=== PATIENT | female | born 1995 | race Caucasian/White ===

== ENCOUNTER 2019-03-25 21:41 | Outpatient (CLI) | payer MEDICAID ==
[~2019-03-25] VITALS: Ht 160 cm; Wt 90.0 kg
[2019-03-25 22:02] VITALS: BP 118/75; PULSE 106; RESP 20; Ht 160 cm; Wt 90.0 kg
[2019-03-25] MEDS ORDERED: PREN-93 PO (23:40)
--- NOTE | 2019-03-26 00:24 | PN ---
Triage Information Date/Time Reason for visit: Abd/pelvic pain Weeks of Gestation 29 weeks /Para Diabetes: none Hypertention: none Objective Vital Signs Date Temp Pulse Resp B/P (MAP) Pulse Ox O2 O2 Flow FiO2 Time Delivery Rate 03/25/19 98.3 106 20 118/75 98 Room Air 22:02 (89) Heart Rate: 130's Heart Rate Comments Reactive Contractions: None Results/Medications Result Diagram: 03/25/19 2244 Results 24 hrs Laboratory Tests Test 03/25/19 21:45 03/25/19 22:44 Urine Color COLORLESS Urine Clarity CLEAR Urine pH 7.0 Urine Specific [place] 1.008 Urine Ketones NEGATIVE Urine Nitrite NEGATIVE Urine Bilirubin NEGATIVE Urine Urobilinogen NEGATIVE Urine Leukocyte Esterase NEGATIVE Urine Hemoglobin NEGATIVE Urine Glucose 3+ H Urine Total Protein NEGATIVE White Blood Count 14.4 H Red Blood Count 4.04 L Hemoglobin 11.4 L Hematocrit 35.9 L Mean Corpuscular Volume 88.9 Mean Corpuscular Hemoglobin 28.2 L Mean Corpuscular Hemoglobin Concent 31.8 L Red Cell Distribution Width 14.0 Platelet Count 416 H Mean Platelet Volume 9.6 Immature Granulocytes % 2.600 H Neutrophils % 67.3 Lymphocytes % 18.8 Monocytes % 7.5 Eosinophils % 3.3 Basophils % 0.5 Nucleated Red Blood Cells % 0.0 Immature Granulocytes # 0.380 H Neutrophils # 9.7 H Lymphocytes # 2.7 Monocytes # 1.1 H Eosinophils # 0.5 Basophils # 0.1 Nucleated Red Blood Cells # 0.0 Disposition: Discharge Assessment/Plan No sign of labor Follow up in clinic for 1 hr GCT MADI ORR MD March 26, 2019 00:24
--- NOTE | 2019-03-26 07:32 | TRIAGE ---
OB Triage Datetime Report Generated by CPN: 03/26/2019 07:32 Datetime: 03/26/2019 00:15 Stage of : OB Triage Labor Evaluation Frequency: None noted or palpated Monitor Mode: External Resting Tone [place]: Relaxed Heart Rate FHR Baseline Rate: 150 Monitor Mode: External US Variability: Moderate 6-25 bpm Accelerations: 10X10 Datetime: 03/25/2019 23:00 Stage of : OB Triage Labor Evaluation Frequency: x1 Monitor Mode: External Duration (sec)2399: 40 Quality: Mild Pattern: Normal: <= 5 Contractions in 10 Minutes Resting Tone [place]: Relaxed Heart Rate FHR Baseline Rate: 150 Monitor Mode: External US Variability: Moderate 6-25 bpm Accelerations: 15X15 Decelerations: Variable Category: Category II Datetime: 03/25/2019 22:53 EGA: 29.0 Datetime: 03/25/2019 22:14 Stage of : OB Triage Datetime: 03/25/2019 22:06 Monitor Mode: External Resting Tone [place]: Relaxed Contraction Comments: [place] applied Datetime: 03/25/2019 22:02 Stage of : OB Triage Assessment Type: Triage Maternal Assessment Level of Consciousness: Fully Conscious DTR's/Clonus: DTRs 2+; No Clonus Headache: Denies Blurred Vision: No Respiratory Effort: Unlabored; Regular Rhythm; Equal Expansion Breath Sounds, Left: Clear and Equal Breath Sounds, Right: Clear and Equal Nausea/Vomiting: Denies RUQ Epigastric Pain: Denies Lower Extremities Edema: None Degree: None Upper Extremities Edema: None Degree: None Facial Edema: None Temperature Route: Oral Fall Risk Assessment History of Falling: (0) No Secondary Diagnosis: (0) No Ambulatory Aid: (0) Bedrest/Nurse Assist IV Therapy: (0) No Gait: (0) Normal/Bedrest/Immobile Mental Status: (0) Oriented to Own Ability Fall Score: 0 Fall Risk Score Definition: No Risk: No action required Pain Assessment Pain Scale: 5 Pain Presence: Constant Pain Type: Pressure; Ache Pain Location: Abdomen; Back Pain Relief Measures: Comfort Measures Pain Assessment Comments: Pt reports lower abdominal pressure _ constant back pain Datetime: 03/25/2019 22:00 Monitor Mode: External US Comments: EFM applied Datetime: 03/25/2019 21:53 Time of Arrival: 03/25/2019 21:33 Arrived By: Wheelchair Arrived From: Home Chief Complaint: Pt reports lower abdominal pressure _ constant back pain Movement: Present Contractions: Denies/Absent Rupture of Membranes: Denies Vaginal Bleeding: None Vaginal Discharge: Denies Abdominal Trauma: Not Applicable Patient Complaints: Back Pain Additional Patient Complaints: Reports has low lying placenta since 21wks - denies ever having blee ding Hx elevated BPs - no meds Time Provider Notified: 03/25/2019 21:45 Provider Notified:
== END 2019-03-26 00:38 | disposition home or self-care (01) ==
LOC: OBT 21:41 → L-D 21:46 → OBT 03-26 00:38
PROVIDERS: ATTEND Obstetrics & Gynecology
DX: O26.893 Other specified pregnancy related conditions, third trimester (principal); R10.2 Pelvic and perineal pain; Z3A.29 29 weeks gestation of pregnancy
CPT/HCPCS: 76817; 81003; 85025

== ENCOUNTER 2019-05-03 17:16 | Outpatient (CLI) | payer MEDICAID ==
[~2019-05-03] VITALS: Ht 157.5 cm; Wt 93.5 kg
[~2019-05-03 17:16] MED LIST: PREN-93 PO
[2019-05-03 17:27] VITALS: Ht 157.5 cm; Wt 93.5 kg
[2019-05-03 17:28] VITALS: BP 120/69; PULSE 96; RESP 18
--- NOTE | 2019-05-03 20:23 | PN ---
Triage Information Date/Time Reason for visit: Elevated blood pressures rule out preeclampsia Weeks of Gestation 23-year-old 2 para 0 at 34 weeks and 4 days of gestation with estimated date of delivery June 10, 2019 Patient reports of having elevated blood pressure since the beginning of and she was sent from her clinic to rule out preeclampsia Patient denies headache or blurry vision, denies chest pain or shortness of breath, denies right upper quadrant pain Patient reports positive movement, denies vaginal bleeding and leaking fluid, denies uterine contractions /Para 2 para 0 Diabetes: none Hypertention: induced Objective Vital Signs Date Temp Pulse Resp B/P (MAP) Pulse Ox O2 O2 Flow FiO2 Time Delivery Rate 05/03/19 98.7 96 18 120/69 Room Air 17:28 (86) Heart Rate: 140's Heart Rate Comments heart rate tracing category 1 Contractions: None Results/Medications Result Diagram: 05/03/19 1751 05/03/19 1751 Results 24 hrs Laboratory Tests Test 05/03/19 17:51 05/03/19 18:00 White Blood Count 10.1 # Red Blood Count 4.22 Hemoglobin 11.9 L Hematocrit 37.4 Mean Corpuscular Volume 88.6 Mean Corpuscular Hemoglobin 28.2 L Mean Corpuscular Hemoglobin Concent 31.8 L Red Cell Distribution Width 14.6 H Platelet Count 314 # Mean Platelet Volume 10.1 Immature Granulocytes % 1.000 H Neutrophils % 66.8 Lymphocytes % 20.1 Monocytes % 5.5 Eosinophils % 6.1 Basophils % 0.5 Nucleated Red Blood Cells % 0.0 Immature Granulocytes # 0.100 H Neutrophils # 6.8 Lymphocytes # 2.0 Monocytes # 0.6 Eosinophils # 0.6 H Basophils # 0.1 Nucleated Red Blood Cells # 0.0 Sodium Level 138 Potassium Level 4.1 Chloride Level 109 Carbon Dioxide Level 21 Anion Gap 8 Blood Urea Nitrogen 6 L Creatinine 0.50 Est Glomerular Filtrat Rate mL/min > 60 Glucose Level 140 Uric Acid 3.5 Calcium Level 9.3 Total Bilirubin 0.4 Direct Bilirubin 0.00 Indirect Bilirubin 0.4 Aspartate Amino Transf (AST/SGOT) 19 Alanine Aminotransferase (ALT/SGPT) 20 Alkaline Phosphatase 204 H Total Protein 6.6 Albumin 3.3 Globulin 3.30 H Albumin/Globulin Ratio 1.00 Urine Color YELLOW Urine Clarity CLEAR Urine pH 7.0 Urine Specific [place] 1.006 Urine Ketones NEGATIVE Urine Nitrite NEGATIVE Urine Bilirubin NEGATIVE Urine Urobilinogen NEGATIVE Urine Leukocyte Esterase NEGATIVE Urine Hemoglobin NEGATIVE Urine Glucose NEGATIVE Urine Total Protein NEGATIVE Imaging Results PROCEDURE: US OB. CLINICAL INDICATION: Hypertension TECHNIQUE: Multiple sonographic images of the pelvis were obtained. The images were reviewed on a PACS workstation. COMPARISON: No prior studies are available for comparison. FINDINGS: There is a single viable intrauterine gestation. Cardiac activity is present with 142 beats per minute. There is a cephalic presentation. Measurements were made in order to determine age. The results are as follows: BPD = 8.74 cm 35 weeks 2 days HC = 31.48 cm 35 weeks 2 days AC = 31.35 cm 35 weeks 2 days FL = 6.90 cm 35 weeks 3 days. Estimated gestational age of approximately 35 weeks 2 days. The estimated date of delivery is 06/05/2019. The EFW = 2649 g 67.8% . The placenta is posterior grade II. There is no evidence for an abruption There is a normal amount of amniotic fluid with an VALERIA = 14.58 cm. IMPRESSION: Single viable intrauterine gestation of approximately 35 weeks 2 days. The estimated date of delivery is 06/05/2019 . .Carlos Davalos MD, Date Time Electronically viewed and signed by .Carlos Davalos MD, MD on 05/03/2019 18:29 .W/ CC: NEREYDA ROSS MD [id number] PROCEDURE: US OB. CLINICAL INDICATION: Hypertension TECHNIQUE: Multiple sonographic images of the pelvis were obtained. The images were reviewed on a PACS workstation. COMPARISON: No prior studies are available for comparison. FINDINGS: There is a single live intrauterine . cardiac activity is identified at a rate of 161 beats per minute. presentation is cephalic. Placenta is posterior grade II. Biophysical profile score is as follows: Breathing 2 Movements 2 Tone 2 Fluid volume 2 Amniotic fluid index = 14.58 cm Total biophysical profile score = 8/8 IMPRESSION: Biophysical profile score = 8/8 RPTAT: HH .Carlos Davalos MD, MD Date Time Electronically viewed and signed by .Carlos Davalos MD, on 05/03/2019 18:25 .W/ CC: NEREYDA ROSS MD [phone] Disposition: Discharge Assessment/Plan Labs and ultrasound all within normal limits Patient instructed to proceed with 24-hour urine protein collection kick count instructions were given Labor precautions were given Patient instructed to follow-up with [facility] in 1 to 2 days Patient instructed to return in 48 hours for repeat NST and BPP TYLER RAY MD May 03, 2019 20:23
--- NOTE | 2019-05-03 23:17 | TRIAGE ---
OB Triage Datetime Report Generated by CPN: 05/03/2019 23:17 Datetime: 05/03/2019 19:50 Stage of : OB Triage Datetime: 05/03/2019 19:31 Stage of : OB Triage Labor Evaluation Frequency: 3-8 Monitor Mode: External Pattern: Normal: <= 5 Contractions in 10 Minutes Resting Tone [place]: Relaxed Heart Rate FHR Baseline Rate: 140 Monitor Mode: External US Variability: Moderate 6-25 bpm Accelerations: 15X15 Decelerations: None Category: Category I Pain Assessment Pain Scale: 0 Pain Presence: None/Denies Pain Type: N/A Pain Relief Measures: Comfort Measures Datetime: 05/03/2019 18:30 Stage of : OB Triage Maternal Assessment Level of Consciousness: Keenly Alert, Responsive Labor Evaluation Frequency: OCCASIONAL Monitor Mode: External Duration (sec)2399: 60-70 Quality: Mild Resting Tone [place]: Relaxed Heart Rate FHR Baseline Rate: 145 Monitor Mode: External US Variability: Moderate 6-25 bpm Accelerations: 15X15 Decelerations: None Category: Category I Pain Assessment Pain Scale: 0 Pain Goal: 3 Vaginal Exam Membrane Status: Intact Vaginal Bleeding: None Datetime: 05/03/2019 17:24 Assessment Type: Triage Maternal Assessment Level of Consciousness: DTR's/Clonus: DTRs 2+; No Clonus Headache: Denies Blurred Vision: No Respiratory Effort: Unlabored; Regular Rhythm; Equal Expansion Breath Sounds, Left: Clear and Equal Breath Sounds, Right: Clear and Equal Nausea/Vomiting: Denies RUQ Epigastric Pain: Denies Lower Extremities Edema: None Degree: None Upper Extremities Edema: None Degree: None Facial Edema: None Fall Risk Assessment History of Falling: (0) No Secondary Diagnosis: (0) No Ambulatory Aid: (0) Bedrest/Nurse Assist IV Therapy: (0) No Gait: (0) Normal/Bedrest/Immobile Mental Status: (0) Oriented to Own Ability Fall Score: 0 Fall Risk Score Definition: No Risk: No action required Datetime: 05/03/2019 17:23 Time of Arrival: 05/03/2019 17:06 EGA: 34.4 Arrived By: Ambulatory Arrived From: Dr. Fleming Chief Complaint: PT. HERE FOR EVAL. OF HBP Movement: Present Contractions: Denies/Absent Rupture of Membranes: Denies Vaginal Bleeding: None Vaginal Discharge: Denies Recent Sexual Intercouse: Denies Abdominal Trauma: Not Applicable Patient Complaints: None Time Provider Notified: 05/03/2019 17:30 Provider Notified: VANDANA Initial Plan: PIH PANEL/BPP Datetime: 05/03/2019 17:21 Monitor Mode: External Monitor Mode: External US Datetime: 03/25/2019 22:53 EGA: 29.0 Datetime: 03/25/2019 22:02 Fall Score: 0 Fall Risk Score Definition: No Risk: No action required
== END 2019-05-03 20:10 | disposition home or self-care (01) ==
LOC: OBT 17:16 → L-D 17:16 → OBT 20:10
PROVIDERS: ATTEND Obstetrics & Gynecology
DX: O13.3 Gestational [pregnancy-induced] hypertension without significant proteinuria, third trimester (principal); Z3A.34 34 weeks gestation of pregnancy
CPT/HCPCS: 76815; 76818; 80053; 81003; 84560; 85025; Z7500; G0463

== ENCOUNTER 2019-05-05 08:36 | Outpatient (CLI) | payer MEDICAID ==
[~2019-05-05] VITALS: Ht 160 cm; Wt 93.0 kg
[2019-05-05 10:00] VITALS: BP 111/64; PULSE 89; RESP 18; Ht 160 cm; Wt 93.0 kg
--- NOTE | 2019-05-05 10:57 | PREOPHP ---
DATE OF ADMISSION: 05/05/2019 HISTORY OF PRESENT ILLNESS: Ms. Cuca Jefferson is a 23-year-old 2, para 0, EDC 06/10/2019 intr auterine at 34 weeks and 6 days gestational age, presented to triage for re-evaluation of a history of elevated blood pressure. She denies any headache, nausea, vomiting, shortness of breath, visual changes, epigastric pain. She reports good movement. PAST MEDICAL HISTORY: None. MEDICATIONS: vitamins. PAST SURGICAL HISTORY: None. OBSTETRICAL HISTORY: x1 missed AB. GYNECOLOGIC HISTORY: 11, regular 3 to 4 days. Denies any sexually transmitted infections. Sexually active with 1 partner. SOCIAL HISTORY: Denies any smoking, drugs or alcohol. FAMILY HISTORY: None. REVIEW OF SYSTEMS: All Within normal. VITAL SIGNS: Blood pressure 111/64, pulse 89, respiration 18, temperature 98.3. HEENT: Within normal. LUNGS: CTA bilateral. CARDIOVASCULAR: S1, S2, regular rhythm. ABDOMEN: Gravid, nontender. Negative CVA bilateral. EXTREMITIES: No calf tenderness. PELVIC: Vaginal exam deferred. heart tracing category 1. [place]: Occasional contractions. ASSESSMENT: Intrauterine at 34 weeks and 6 days gestational age for a history of elevated blood pressures, currently stable, afebrile. PLAN: Discharge home the patient today after a biophysical profile is within normal and gives strict preeclamptic precautions. Dictated By: NEREYDA PEREZ/GIA Conf#: [id number] DID#: [id number]
--- NOTE | 2019-05-05 12:02 | TRIAGE ---
OB Triage Datetime Report Generated by CPN: 05/05/2019 12:02 Datetime: 05/05/2019 09:55 Maternal Assessment Level of Consciousness: Keenly Alert, Responsive DTR's/Clonus: DTRs 2+ Headache: Denies Blurred Vision: No Nausea/Vomiting: Denies RUQ Epigastric Pain: Denies Facial Edema: None Labor Evaluation Frequency: IRREG Monitor Mode: External Duration (sec)2399: 60 Quality: Moderate Pattern: Normal: <= 5 Contractions in 10 Minutes Resting Tone [place]: Relaxed Heart Rate FHR Baseline Rate: 140 Monitor Mode: External US FHR Baseline Changes: No Baseline Change Variability: Moderate 6-25 bpm Accelerations: 15X15 Decelerations: None Category: Category I Pain Assessment Pain Scale: 0 Pain Presence: Intermittent Pain Type: Cramping Pain Location: Abdomen Pain Goal: 0 Vaginal Exam Membrane Status: Intact Datetime: 05/05/2019 09:46 Maternal Assessment Level of Consciousness: Keenly Alert, Responsive DTR's/Clonus: DTRs 2+; No Clonus Headache: Denies Blurred Vision: No Respiratory Effort: Unlabored; Regular Rhythm; Equal Expansion Breath Sounds, Left: Clear and Equal Breath Sounds, Right: Clear and Equal Nausea/Vomiting: Denies RUQ Epigastric Pain: Denies Facial Edema: None Temperature Route: Axillary Fall Risk Assessment History of Falling: (0) No Secondary Diagnosis: (0) No Ambulatory Aid: (0) Bedrest/Nurse Assist IV Therapy: (0) No Gait: (0) Normal/Bedrest/Immobile Mental Status: (0) Oriented to Own Ability Fall Score: 0 Fall Risk Score Definition: No Risk: No action required Datetime: 05/05/2019 08:10 Time of Arrival: 05/05/2019 08:10 EGA: 34.6 Arrived By: Ambulatory Arrived From: Home Chief Complaint: RETURN 24HR URINE Movement: Present Contractions: Regular Contractions: 7-8 Rupture of Membranes: Denies Vaginal Bleeding: None Vaginal Discharge: Denies Recent Sexual Intercouse: Denies Abdominal Trauma: Not Applicable Patient Complaints: Other Time Provider Notified: 05/05/2019 09:00 Provider Notified: DR ROSS Initial Plan: EFM,CALL DR ROSS (Annotations: Data stored by N on behalf of user) Datetime: 05/03/2019 17:24 Fall Score: 0 Fall Risk Score Definition: No Risk: No action required Datetime: 05/03/2019 17:23 EGA: 34.4 Datetime: 03/25/2019 22:53 EGA: 29.0 Datetime: 03/25/2019 22:02 Fall Score: 0 Fall Risk Score Definition: No Risk: No action required
== END 2019-05-05 12:00 | disposition home or self-care (01) ==
LOC: L-D 08:36 → OBT 08:36
PROVIDERS: ATTEND Obstetrics & Gynecology
DX: O13.3 Gestational [pregnancy-induced] hypertension without significant proteinuria, third trimester (principal); Z3A.34 34 weeks gestation of pregnancy
CPT/HCPCS: 76818; 80053; 81001; 82575; 84156; 84560; 85025; 85384; 85610; 85730; Z7500; G0463

== ENCOUNTER 2019-05-27 03:32 | Inpatient (IN) | payer MEDICAID ==
[~2019-05-27] VITALS: Ht 160 cm; Wt 89.1 kg
--- NOTE | 2019-05-27 03:59 | TRIAGE ---
OB Triage Datetime Report Generated by CPN: 05/27/2019 03:58 Datetime: 05/27/2019 03:56 Time of Arrival: 05/27/2019 03:26 EGA: 38.0 Arrived By: Wheelchair Arrived From: Home Chief Complaint: Leaking Movement: Present Contractions: Denies/Absent Rupture of Membranes: Ruptured Vaginal Bleeding: None Vaginal Discharge: Denies Recent Sexual Intercouse: Denies Abdominal Trauma: Not Applicable Time Provider Notified: 05/27/2019 03:45 Provider Notified: Dr. Perkins Initial Plan: CEFM, nitrazine, VE Datetime: 05/27/2019 03:53 Vaginal Exam Dilatation (cms): 2.0 Effacement (%): 80 Station: -2 Exam By: Ian Cota RN Membrane Status: Ruptured Membranes Rupture Method: Spontaneous Amniotic Fluid Color: Clear Amniotic Fluid Amount: Moderate Amniotic Fluid Odor: Normal Vaginal Bleeding: None Pool: Positive Nitrazine: Positive Cervix, Consistency: Moderate Cervix, Position: Midposition Presentation 'A': Cephalic Datetime: 05/27/2019 03:50 Stage of : OB Triage Assessment Type: Triage Maternal Assessment Level of Consciousness: Keenly Alert, Responsive DTR's/Clonus: DTRs 2+; No Clonus Headache: Denies Blurred Vision: No Respiratory Effort: Unlabored; Regular Rhythm; Equal Expansion Breath Sounds, Left: Clear and Equal Breath Sounds, Right: Clear and Equal Nausea/Vomiting: Denies RUQ Epigastric Pain: Denies Lower Extremities Edema: None Degree: None Upper Extremities Edema: None Degree: None Facial Edema: None Temperature Route: Oral Fall Risk Assessment History of Falling: (0) No Secondary Diagnosis: (0) No Ambulatory Aid: (0) Bedrest/Nurse Assist IV Therapy: (0) No Gait: (0) Normal/Bedrest/Immobile Mental Status: (0) Oriented to Own Ability Fall Score: 0 Fall Risk Score Definition: No Risk: No action required Pain Assessment Pain Scale: 0 Pain Presence: None/Denies Pain Type: N/A Datetime: 05/27/2019 03:40 Membrane Status: Ruptured Datetime: 05/05/2019 09:46 Fall Score: 0 Fall Risk Score Definition: No Risk: No action required Datetime: 05/05/2019 08:10 EGA: 34.6 Datetime: 05/03/2019 17:24 Fall Score: 0 Fall Risk Score Definition: No Risk: No action required Datetime: 05/03/2019 17:23 EGA: 34.4 Datetime: 03/25/2019 22:53 EGA: 29.0 Datetime: 03/25/2019 22:02 Fall Score: 0 Fall Risk Score Definition: No Risk: No action required
[2019-05-27 04:06] VITALS: Ht 160 cm; Wt 89.1 kg
[2019-05-27 04:07] VITALS: BP 136/83; PULSE 94; RESP 18
[2019-05-27] MEDS ORDERED: LACTATED RINGER'S 1,000 ML IV PRN (04:09)
[2019-05-27] MEDS ORDERED: OXYTOCIN 30 UNITS/LR 500 ML IV PRN (04:30)
[2019-05-27] MEDS ORDERED: CARBOPROST 250 MCG INJ IM PRN (04:30)
[2019-05-27] MEDS ORDERED: MISOPROSTOL 200 MCG TAB PR PRN (04:30)
[2019-05-27] MEDS ORDERED: METHYLERGONOVINE 0.2 MG INJ IM PRN (04:30)
[2019-05-27] MEDS ORDERED: OXYTOCIN 30 UNITS/LR 500 ML IV SCH ×3 (04:30)
[2019-05-27] MEDS ORDERED: IBUPROFEN 600 MG TAB PO PRN (04:30)
[2019-05-27] MEDS ORDERED: LIDOCAINE 1% (MPF) 30 ML INJ INJ PRN (04:30)
[2019-05-27] MEDS ORDERED: BUTORPHANOL 2 MG INJ IV PRN (04:30)
[2019-05-27] MEDS ORDERED: MINERAL OIL LIGHT 10 ML VIAL TOP PRN (04:30)
[2019-05-27] MEDS ORDERED: AMPICILLIN 2 GM/NS (PMX) 100 ML IV ONE (05:00)
[2019-05-27] MEDS: LACTATED RINGER'S 1,000 ML IV SCH ×2 (05:10→16:21)
[2019-05-27] MEDS ORDERED: AMPICILLIN 1 GM/NS (PMX) 50 ML IV SCH (09:00)
--- NOTE | 2019-05-27 10:18 | QN ---
Documentation Comment progress note patient seen and evaluated no complaints vs stable afebrile ab gravid nt extremity no edema no calf tenderness ve 2/80/-2 srom fhr cat 1 toco irregular a/ iup at term in labor currently on pitocin for augmentation p/ anticipate vaginal delivery NEREYDA ROSS MD May 27, 2019 10:18
[2019-05-27] MEDS ORDERED: FENTAnyl 2MCG/ML-ROPIV 0.2% 100 ML ONE (11:10)
--- NOTE | 2019-05-27 11:18 | PREAC ---
Date/Time of Note Date/Time of Note DATE: 05/27/19 TIME: 11:16 Anesthesia Eval and Record Evaluation Time Pre-Procedure Interview DATE: 05/27/19 TIME: 11:16 Age 23 Sex female NPO: 8 hrs Preoperative diagnosis Labor Pain, R/O Eclampsia Planned procedure Labor Epidural Past Medical History Past Medical History: Includes : : (2), Para: (0), Gestational age: (38), PIH (R/O) Surgery & Anesthesia Issues No known issue Meds Anticoagulation: No Beta Adia within 24 hr: No Reason Beta Adia not given: Pt. not on B-Adia Reported Medications Vit No.124/Iron/FA ( Vitamin Tablet) 1 Each Tablet, 1 EACH PO DAILY, TAB 03/25/19 Current Medications Lactated Ringer's 1,000 ml @ 125 mls/hr Q8H IV Last administered on 05/27/19at 05:10; Admin Dose 125 MLS/HR; Start 05/27/19 at 04:09 Butorphanol Tartrate (Stadol) 2 mg Q2H PRN IV .PAIN SCALE 6-10; Start 05/27/19 at 04:30 Lidocaine (Xylocaine 1% (Mpf)) 30 ml ONCE PRN INJ .EPISIOTOMY; Start 05/27/19 at 04:30 Oxytocin/Lactated Ringer's 500 ml @ 500 mls/hr ONCE POST IV ; Start 05/27/19 at 04:30 Oxytocin/Lactated Ringer's 500 ml @ 125 mls/hr POST IV ; Start 05/27/19 at 04:30 Ibuprofen (Motrin) 600 mg ONCE PRN PO .PAIN 1-5; Start 05/27/19 at 04:30 Lactated Ringer's 1,000 ml @ 2,000 mls/hr Q30M PRN IV .ANESTHESIA Last administered on 05/27/19at 09:50; Admin Dose 2,000 MLS/HR; Start 05/27/19 at 04:09 Oxytocin/Lactated Ringer's 500 ml @ 0 mls/hr ONCE PRN IV .VAGINAL BLEEDING; Start 05/27/19 at 04:30 Methylergonovine Maleate (Methergine) 0.2 mg ONCE PRN IM .VAGINAL BLEEDING; Start 05/27/19 at 04:30 Carboprost Tromethamine (Hemabate) 250 mcg ONCE PRN IM .VAGINAL BLEEDING; Start 05/27/19 at 04:30 Misoprostol (Cytotec) 1,000 mcg ONCE PRN VT .VAGINAL BLEEDING; Start 05/27/19 at 04:30 Oxytocin/Lactated Ringer's 500 ml @ 0 mls/hr FOR AUGMENTATION IV Last administered on 05/27/19at 05:15; Admin Dose 2 MLS/HR; Start 05/27/19 at 04:30 Mineral Oil (Muri-Lube) 30 ml PRN PRN TOP NOTE; Start 05/27/19 at 04:30 Meds reviewed: Yes Allergies Coded Allergies: No Known Allergy (Unverified , 05/27/19) Allergies Reviewed: Yes Labs/Studies Labs Reviewed: Reviewed by anesthesiologist Result Diagram: 05/27/19 0445 Laboratory Tests 05/27/19 04:45 Blood Bank Test 05/27/19 04:45 Antibody Screen NEGATIVE Blood Type A POSITIVE Rh Immune Globulin Candidate NO test: Positive Studies: ECG (n/a), CXR (n/a) Pre-procedure Exam Last vitals Vital Signs Date Temp Pulse Resp B/P (MAP) Pulse Ox O2 O2 Flow FiO2 Time Delivery Rate 05/27/19 98.6 94 18 136/83 Room Air 04:07 (100) Airway: Adequate mouth opening, Adequate thyromental dist Mallampati: Mallampati II Teeth: Normal Lung: Normal Heart: Normal ASA Physical Status ASA physical status: 2 Emergency: None Planned Anesthetic Neuraxial: Epidural Planned Pain Management Epidural Pre-operative Attestations Prior to commencing anesthesia and surgery, the patient was re-evaluated, there was verification of: *The patient's identity *The results of appropriate recent lab work and preoperative vital signs *The above evaluation not changing prior to induction *Anesthetic plan, risk benefits, alternative and complications discussed with patient/family; questions answered; patient/family understands, accepts and wishes to proceed. DAVON ALAN MD May 27, 2019 11:18
--- NOTE | 2019-05-27 11:19 | PAC ---
Date/Time of Note Date/Time of Note DATE: 05/27/19 TIME: 11:19 Post-Anesthesia Notes Post-Anesthesia Note Last documented vital signs Vital Signs Date Temp Pulse Resp B/P (MAP) Pulse Ox O2 O2 Flow FiO2 Time Delivery Rate 05/27/19 98.6 94 18 136/83 97 Room Air 11:17 (100) Activity: WNL Respiratory function: WNL Cardiovascular function: WNL Mental status: Baseline Pain reasonably controlled: Yes Hydration appropriate: Yes Nausea/Vomiting absent: Yes DAVON ALAN MD May 27, 2019 11:19
[2019-05-27] MEDS ORDERED: NALOXONE (0.4 MG/ML) INJ IV PRN (11:30)
[2019-05-27] MEDS: FENTAnyl 2MCG/ML-ROPIV 0.2% 100 ML BAG EPI SCH (19:26)
[2019-05-27] MEDS: AMPICILLIN 1 GM/NS (PMX) 50 ML IV SCH (21:26)
[2019-05-28] MEDS: FENTAnyl 2MCG/ML-ROPIV 0.2% 100 ML BAG EPI SCH ×3 (01:47→14:11)
[2019-05-28] MEDS: AMPICILLIN 1 GM/NS (PMX) 50 ML IV SCH ×5 (01:48→19:47)
[2019-05-28] MEDS: LACTATED RINGER'S 1,000 ML IV SCH ×4 (01:50→20:09)
--- NOTE | 2019-05-28 09:09 | QN ---
Documentation Comment progress note patient seen and evaluated no complaints vs stable afebrile ab gravid nt extremity no edema no calf tenderness ve fd/ 100/0 srom fhr cat 1 toco regular a/ iup at term in labor currently on pitocin for augmentation p/ anticipate vaginal delivery patient currently declines to push and desire to labor down. r/b/a explained I have signed out the patient to Dr. Govea (laborist) NEREYDA ROSS MD May 28, 2019 09:09
[2019-05-28] MEDS ORDERED: MISOPROSTOL 200 MCG TAB PR PRN ×2 (14:00→18:00)
[2019-05-28] MEDS ORDERED: CARBOPROST 250 MCG INJ IM PRN ×2 (14:00→18:00)
[2019-05-28] MEDS ORDERED: METHYLERGONOVINE 0.2 MG INJ IM PRN ×2 (14:00→18:00)
[2019-05-28] MEDS ORDERED: OXYTOCIN 30 UNITS/LR 500 ML IV SCH ×2 (14:00→17:55)
[2019-05-28] MEDS ORDERED: CEFAZOLIN 3 GM in DEXTROSE 5% 100 ML IV ONE (14:00)
[2019-05-28] MEDS ORDERED: OXYTOCIN 30 UNITS/LR 500 ML IV PRN ×2 (14:00→18:00)
[2019-05-28] MEDS ORDERED: AZITHROMYCIN 500MG/NS (PMX) 250 ML IV SCH (14:00)
--- NOTE | 2019-05-28 14:12 | PN ---
Date/Time of Note Date/Time of Note DATE: 05/28/19 TIME: 14:07 OB Subjective Subjective Subjective S: Patient feeling pressure. O: Vitals stable EFM category I [place] q 3-4 min SVE c/c/+2 with caput OA asynclitic 1. 23 yo at 38 1/7 wga w PROM-second stage arrest-counseled on cs. Risks benefits alternatives indications discussed with the patient including hysterectomy. labs reviewed. GBS negative. 2. CHTN-clamped X labs pending. MILESTVEL GLORIA MD May 28, 2019 14:12
[2019-05-28] MEDS ORDERED: LACTATED RINGER'S 1,000 ML IV ONE (15:16)
[2019-05-28] MEDS ORDERED: FAMOTIDINE 20 MG INJ IV ONE (15:30)
[2019-05-28] MEDS ORDERED: CITRIC ACID/NA CITRATE 30 ML CUP PO ONE (15:30)
[2019-05-28] MEDS ORDERED: METOCLOPRAMIDE 10 MG INJ IV ONE (15:30)
[2019-05-28] MEDS ORDERED: morphine SULFATE/PF (10 MG/10 ML) INJ ONE (16:24)
[2019-05-28] MEDS ORDERED: PHENYLephrine (100 MCG/ML) 10ML SYG ONE ×2 (16:30→17:39)
[2019-05-28] MEDS ORDERED: ONDANSETRON 4 MG INJ ONE (16:55)
[2019-05-28] MEDS ORDERED: DIPHENHYDRAMINE 50 MG INJ IV PRN ×2 (17:00→18:30)
[2019-05-28] MEDS ORDERED: ONDANSETRON 4 MG INJ IV PRN ×2 (17:00→18:30)
[2019-05-28] MEDS ORDERED: PROCHLORPERAZINE 10 MG INJ IV PRN (17:00)
[2019-05-28] MEDS ORDERED: FENTAnyl 50 MCG/ML VIAL IV PRN ×3 (17:00)
[2019-05-28] MEDS ORDERED: MEPERIDINE 25 MG INJ IV PRN (17:00)
[2019-05-28] MEDS ORDERED: KETOROLAC 30 MG INJ IV PRN (17:00)
[2019-05-28] MEDS ORDERED: HYDROmorphONE 1 MG/5 ML IV SYRINGE IV PRN ×3 (17:00)
[2019-05-28] MEDS ORDERED: OXYTOCIN 30 UNITS/LR 500 ML IV ONE (17:11)
--- NOTE | 2019-05-28 17:57 | PAC ---
Date/Time of Note Date/Time of Note DATE: 05/28/19 TIME: 17:55 Post-Anesthesia Notes Post-Anesthesia Note Last documented vital signs Vital Signs Date Temp Pulse Resp B/P (MAP) Pulse Ox O2 O2 Flow FiO2 Time Delivery Rate 05/27/19 98.6 94 18 136/83 Room Air 04:07 (100) Activity: WNL Respiratory function: WNL Cardiovascular function: WNL Mental status: Baseline Pain reasonably controlled: Yes Hydration appropriate: Yes Nausea/Vomiting absent: Yes Comments BP: 130/73 HR: 99 RR: 15 T: 98 SaO2: 97% REJI GENAO MD May 28, 2019 17:57
[2019-05-28] MEDS ORDERED: NACL 0.9% 3 ML SYG IV SCH (18:00)
[2019-05-28] MEDS ORDERED: OXYCODONE/ACETAMINOPHEN (5/325) TAB PO PRN (18:00)
[2019-05-28] MEDS ORDERED: LANOLIN HPA 1 PKT TOP PRN (18:00)
[2019-05-28] MEDS ORDERED: NA PHOSPHATE/BIPHOS 133 ML ENEMA PR PRN (18:00)
--- NOTE | 2019-05-28 18:04 | OPR ---
Date/Time of Note Date/Time of Note DATE: 05/28/19 TIME: 17:58 Operative Report Free Text/Dictation Pre-Operative Diagnosis: 1. Arrest of second stage Post-Operative Diagnosis: Same Procedure(s): Low transverse section Surgeon: Dr. Govea Head Of Precision Targeting: Dr. Olivas Anesthesia: Epidural Findings: Male infant in OA presentation weighing 3940 g with Apgars of 7 and 9 at 1 and 5 minutes respectively. Normal appearing tubes and ovaries. Placenta intact w 3VC. Placenta with yellow tinge noted suspicious for chorioamnionitis. Indications: Arrest of second stage. 4 hours of pushing. 33 hours of pitocin. Failed vacuum (no descent) Description of Procedure: After informed consent was obtained, the patient was taken to the operating room where anesthesia was initiated. The patient was placed in the dorsal, supine position with left lateral tilt to avoid aorto-caval compression. Prior to the beginning of the procedure, sequential compression devices were placed on the patient's lower extremities and activated. A narvaez catheter was placed in the bladder without difficulty. Ancef and Azithromycin were administered. A surgical pause identified the patient and procedure and all parties were in agreement. The patient's abdomen was prepped and draped in sterile fashion. An Allis skin test was performed to ensure adequate anesthesia. A 12 cm Pffannenstiel skin incision was made 2 cm above the pubic symphysis using a scalpel and carried down through to the level of the fascia using bovie. The fascia was scored in the midline and extended bilaterally. The fascial incision was grasped with Faiza clamps, elevated, and sharply and bluntly dissected from the rectus muscles superiorly to the level of the umbilicus and inferiorly to the level of the pubic symphysis. The rectus muscles were then in the midline, and the peritoneum was tented up and entered bluntly. The peritoneal incision was extended superiorly and inferiorly with good visualization of the bladder An Siddharth retractor was then inserted. A hysterotomy was made in a semicircular fashion using a scalpel and extended bilaterally with blunt dissection. Amniotomy was performed and fluid was noted to be clear. The infant's head was then grasped, elevated to the level of the incision and delivered atraumatically in OA presentation, followed by the body which was delivered without difficulty. The infant was suctioned, cord clamped x 2 and cut. Infant was handed to the nursing staff. Cord blood was collected. The placenta was expressed manually. The uterus was cleared of all clots and debris. The uterine incision was repaired with 0-monocryl in a running locking fashion. A second layer of 0-monocryl was utilizied. Hemostasis was noted. The Siddharth retractor was removed. The uterine incision was noted to be hemostatic. The fascia was reapproximated with 0-monocryl. The subcutaneous tissue was closed with 2-0 monocryl. The skin was reapproximated with 3-0 monocryl. Dermabond was placed on the incision. The uterus was firm at the end of the procedure. All counts were correct x 2 at the end of the procedure. Estimated Blood Loss: 800 ml; no blood replaced Drains: Narvaez catheter with 600 ml jacques color urine (prior to surgery) Fluids Given: 2000 ml Specimens/ Cultures: cord blood, cord gases, placenta Implants: None Complications: None Disposition: recovery in hemodynamically stable. Condition: stable Preoperative Diagnosis Second-stage arrest-descent Postoperative Diagnosis Same Operation/Procedure Performed Low transverse section Surgeon see signature line Head Of Precision Targeting Dr. Olivas Anesthesia Type: epidural Estimated Blood Loss: other Transfusion none Specimen Cord gases, cord blood and placenta Grafts/Implants none Complications none Procedure Description MILESTONE,VEL KAUFMAN May 28, 2019 18:03
[2019-05-28] MEDS ORDERED: ZOLPIDEM 5 MG TAB PO PRN (18:30)
[2019-05-28] MEDS ORDERED: HYDROmorphONE 0.5 MG/0.5 ML SYG IV PRN ×2 (18:30)
[2019-05-28] MEDS ORDERED: NALOXONE (0.4 MG/ML) INJ IV PRN (18:30)
[2019-05-28] MEDS: IBUPROFEN 600 MG TAB PO SCH (19:44)
[2019-05-28 20:25] VITALS: BP 114/66; PULSE 91; RESP 16
[2019-05-28 21:00] VITALS: BP 113/65; PULSE 90; RESP 16
[2019-05-28 23:44] VITALS: BP 109/66; PULSE 96; RESP 18
[2019-05-29] MEDS: LACTATED RINGER'S 1,000 ML IV SCH ×2 (04:09→09:18)
[2019-05-29 04:30] VITALS: BP 116/64; PULSE 96; RESP 18
[2019-05-29] MEDS: IBUPROFEN 600 MG TAB PO SCH ×5 (06:00→23:48)
--- NOTE | 2019-05-29 06:23 | QN ---
Documentation Comment progress note patient seen and evaluated no complaints vs stable afebrile ab soft nt c/d/i no distention extremity no edema no calf tenderness a/ sp cd pod 1 stable afebrile p f/u am labs encourage ambulation NEREYDA ROSS MD May 29, 2019 06:23
[2019-05-29] MEDS: KETOROLAC 30 MG INJ IV PRN ×2 (07:38→14:37)
[2019-05-29 08:00] VITALS: BP 110/64; PULSE 100; RESP 18
[2019-05-29 12:00] VITALS: BP 115/65; PULSE 95; RESP 18
[2019-05-29 16:00] VITALS: BP 115/65; PULSE 95; RESP 16
[2019-05-29 20:00] VITALS: BP 123/77; PULSE 99; RESP 19
[2019-05-29] MEDS: OXYCODONE/ACETAMINOPHEN (5/325) TAB PO PRN (21:27)
[2019-05-30 04:00] VITALS: BP 109/61; PULSE 90; RESP 20
[2019-05-30] MEDS: IBUPROFEN 600 MG TAB PO SCH ×4 (05:41→23:39)
--- NOTE | 2019-05-30 07:10 | QN ---
Documentation Comment progress note patient seen and evaluated no complaints vs stable afebrile ab soft nt c/d/i no distention extremity no edema no calf tenderness a/ sp cd pod 2 stable afebrile p discharge home tomorrow NEREYDA ROSS MD May 30, 2019 07:10
[2019-05-30 08:27] VITALS: RESP 18
[2019-05-30] MEDS: OXYCODONE/ACETAMINOPHEN (5/325) TAB PO PRN ×3 (08:27→20:25)
[2019-05-30 09:10] VITALS: BP 114/67; PULSE 86; RESP 18
--- NOTE | 2019-05-30 09:42 | DS ---
DATE OF ADMISSION: 05/27/2019 DATE OF DISCHARGE: 05/31/2019 PRIMARY DIAGNOSIS: Intrauterine at 39 weeks' gestational age, arrest of second stage. PROCEDURE: Primary low transverse delivery. CONDITION ON DISCHARGE: Stable. ACTIVITY: None per vagina, no heavy lifting x6 weeks. DIET: Regular. MEDICATIONS ON DISCHARGE: Motrin 800 mg p.o. q.8h. p.r.n. pain. DISCHARGE SUMMARY: Ms. Cuca Jefferson underwent a primary low transverse delivery on 05/28/20 19. She had a viable male, Apgars 7 and 9 respectively at 1 and 5 minutes, weight 3940 grams. She h ad an uneventful postop day 1 and 2. She was discharged on postop day 3. Her incision is clean, dry , intact. She is ambulating, tolerating diet, positive flatulence, positive bowel movement. She luke l follow up in the clinic in 2 weeks for /postop care. Dictated By: NEREYDA ROSS MD ME/NTS Conf#: [id number] DID#: [id number] CC: PHUONG SEAMAN MD;*EndCC*
[2019-05-30 16:10] VITALS: BP 119/81; PULSE 82; RESP 18
[2019-05-30 20:30] VITALS: BP 126/64; PULSE 98; RESP 18
[2019-05-31] MEDS: OXYCODONE/ACETAMINOPHEN (5/325) TAB PO PRN ×3 (02:42→17:41)
[2019-05-31 04:00] VITALS: BP 99/58; PULSE 77; RESP 17
[2019-05-31] MEDS: IBUPROFEN 600 MG TAB PO SCH ×3 (05:25→17:17)
[2019-05-31 08:00] VITALS: BP 101/62; PULSE 76; RESP 18
[2019-05-31] MEDS ORDERED: MEASLES,MUMPS,RUBELLA VACCINE INJ SC* ONE (09:00)
[2019-05-31] MEDS ORDERED: DIPHTH/TET/ACEL PERTUSS (ADULT) 0.5 ML VIAL IM* ONE (09:00)
[2019-05-31 16:51] VITALS: BP 115/70; PULSE 90; RESP 18
--- NOTE | 2019-06-01 18:24 | DELSUM ---
Delivery Summary A-C Datetime Report Generated by CPN: 06/01/2019 18:23 DELIVERY PERSONNEL Application Infrastructure Engineer: Dorys Raineynda MATERNAL INFORMATION Delivery Anesthesia: Spinal Medications in Delivery: See anes. records Delivery QBL (ml): 800 Placenta Cultured: No Maternal Complications: Other Other Maternal Complications: GTN HTN RN Comments: Cord gasses collected Placenta to pathology LABOR SUMMARY EDC: 06/10/2019 00:00 No. Babies in Womb: 1 Attempted: No Labor Anesthesia: Epidural LABOR INFORMATION Reason for Induction: Not Applicable Onset of Labor: 05/27/2019 02:00 Complete Dilatation: 05/28/2019 06:25 Oxytocin: Augmentation Group B Beta Strep: Negative Antibiotics # of Doses: 7 Antibiotics Time of Last Dose: 05/28/2019 16:39 Steroids Given: None Reason Steroids Not Administered: Not Applicable MEMBRANES Membranes Rupture Method: Spontaneous Rupture of Membranes: 05/27/2019 02:00 Length of Rupture (hr): 38.98 Amniotic Fluid Color: Clear Amniotic Fluid Amount: Moderate Amniotic Fluid Odor: Normal STAGES OF LABOR Stage 1 hr: 28 Stage 1 min: 25 Stage 2 hr: 10 Stage 2 min: 34 Stage 3 hr: 0 Stage 3 min: 1 Total Time in Labor hr: 39 Total Time in Labor min: 0 CSECTION DELIVERY Primary Indication: Other Other Primary Indication: Arrest of 2nd Stage Secondary Indication: Arrest of Descent CSection Urgency: Non Elective CSection Incidence: Primary Labor: Labor Elective: Nonelective CSection Incision: Lower Uterine Transverse BABY A INFORMATION Infant Delivery Date/Time: 05/28/2019 16:59 Method of Delivery: Born in Route : No : N/A Forceps: N/A Vacuum Extraction: Failed Shoulder Dystocia : N/A ASSISTED DELIVERY BABY A Catheter Prior to Procedure: Yes Station Vacuum/Forcep Apply: +2 Vacuum Number of Pulls: 3 Vacuum Number of PopOffs: 0 Reduce Pressure btwn Ctx: Yes Vacuum Dancer Or Choreographer: KIWI SHOULDER DYSTOCIA BABY A Infant Delivery Date/Time: 05/28/2019 16:59 PRESENTATION/POSITION BABY A Presentation: Cephalic Cephalic Presentation: Vertex Breech Presentation: N/A PLACENTA INFORMATION BABY A Placenta Delivery Time : 05/28/2019 17:00 Placenta Method of Delivery: Manual Removal Placenta Status: Delivered SCORES BABY A Heart Rate 1 min: >100 bpm Resp Effort 1 min: Good Cry Reflex Irritability 1 min: Cough/Sneeze/Pulls Away Muscle Tone 1 min: Some Flexion of Extrem Color 1 min: Blue/Pale Resuscitation Effort 1 min: Tactile Stimulation; Oxygen SCORE 1 MIN: 7 Heart Rate 5 min: >100 bpm Resp Effort 5 min: Good Cry Reflex Irritability 5 min: Cough/Sneeze/Pulls Away Muscle Tone 5 min: Active Motion Color 5 min: Body [place], Extremit Blue Resuscitation Effort 5 min: Tactile Stimulation SCORE 5 MIN: 9 Heart Rate 10 min: >100 bpm Resp Effort 10 min: Good Cry Reflex Irritability 10 min: Cough/Sneeze/Pulls Away Muscle Tone 10 min: Active Motion Color 10 min: Body [place], Extremit Blue Resuscitation Effort 10 min: Tactile Stimulation SCORE 10 MIN: 9 INFANT INFORMATION BABY A Gestational Age at Delivery: 38.1 Gestational Status: Early Term- 37- 38.6 Weeks Infant Outcome : Liveborn, with signs of life Condition : Stable Infant Sex: Male IDENTIFICATION/MEDS BABY A ID Band Number: [id number] ID Band Location: Right Leg; Left Arm Sensor Applied: Yes Sensor Number: [id number] Sensor Location : Cord Clamp Vitamin K Given : Not Given Erythromycin Given: Not Given WEIGHT/LENGTH BABY A Birthweight (gm): 3940 Weight (lb): 8 Weight (oz): 11 Length (in): 20.50 Length (cm): 52.07 CORD INFORMATION BABY A No. Cord Vessels: 3 Nuchal Cord : N/A Cord Blood Taken: Yes Infant Suction: Mouth; Nose ASSESSMENT BABY A Infant Complications: None Physical Findings at Delivery: Caput Succedaneum Respirations: Nasal Flaring Pocket Builder/ALS Called : No Infant Care By: RT Doug/ Justin Amaral RN Transferred To: Remains with Mother
--- NOTE | 2019-06-05 10:38 | HP ---
Date/Time of Note Date/Time of Note DATE: 06/05/19 TIME: 10:35 OB - History Hx of Present Free Text/Dictation 23 y.o. with an IUP at 38 w came in labor with ruptured membranes and her initial exam was 80%/2/-1. Estimated Due Date: Jun 10, 2019 : 2 Para: 2 Care: Limited Care Ultrasounds: Normal mid trimester US Obstetrical Complications: None Medical Complications: None Other Concerns: NOTE: I never saw this pt but my name was the admitting doctor. Past Family/Social History * Past Medical, Surgical, Family and Obstetric Histories reviewed from chart. Blood Type: Unknown Rubella: unknown RPR/VDRL: Unknown GBS Status: Negative HBsAG: Unknown OB Admission Exam Physical Exam Cervical Dilatation: 2cm Effacement: Other (80%) Station: -2 Membranes: Ruptured Amniotic Fluid: Clear Heart Rate: 140's Accelerations: No Accelerations Decelerations: Early Decelerations Varibility: Moderate Intensity: Mild OB Assessment/Plan Reason for admission: active labor, rupture of membranes Plan: Expectant Management Other plan: Augmentation as needed. PHUONG SEAMAN MD Jun 05, 2019 10:38
== END 2019-05-31 18:22 | disposition home or self-care (01) | DRG 788 ==
LOC: OBT 03:32 → L-D 03:34 → OBT 04:00 → L-D 04:14 → PP1 05-28 20:20
PROVIDERS: ADMIT Obstetrics & Gynecology; ATTEND Obstetrics & Gynecology
PROC: 10D00Z1 Extraction of Products of Conception, Low, Open Approach (ICD-10-PCS; principal; 2019-05-28)
DX: O16.4 Unspecified maternal hypertension, complicating childbirth (principal); O62.1 Secondary uterine inertia; O32.4XX0 Maternal care for high head at term, not applicable or unspecified; O66.5 Attempted application of vacuum extractor and forceps; Z3A.38 38 weeks gestation of pregnancy; Z37.0 Single live birth
CPT/HCPCS: 36415; 36600; 62322; 76815; 80053; 80076; 81003; 82570; 82803; 84560; 85025; 85610; 85730; 86592; 86850; 86900; 86901; 88307; 99464; G0463; J0290; J0456; J0690; J1885; J2274; J2370; J2405; J2590; J3010; J7120